=== PATIENT | female | born 1960 ===

== ENCOUNTER 2019-03-16 11:08 | Emergency (ER) | payer BC ==
[~2019-03-16] VITALS: Ht 175.3 cm; Wt 81.6 kg
[2019-03-16] MEDS ORDERED: OXYCODON-ACETA1 EAC1 PO (11:33)
[2019-03-16] MEDS ORDERED: IBUPROFEN400 MG PO (11:34)
[2019-03-16] MEDS ORDERED: PERCOCET 5-3251 EACH PO (14:04)
[2019-03-16] MEDS ORDERED: KETO10TA2 PO (14:12)
[2019-03-16] MEDS ORDERED: SKELAXIN800 MG PO (14:12)
== END 2019-03-16 14:25 | disposition home or self-care (01) ==
LOC: ER 11:08
DX: M54.5 Low back pain (principal)